=== PATIENT | male | born 1965 | race Caucasian/White ===

== ENCOUNTER 2018-12-10 11:33 | Emergency (ER) | payer OTHER ==
[~2018-12-10] VITALS: Ht 170.2 cm; Wt 89.4 kg
[~2018-12-10 11:33] MED LIST: HYDR-4011 PO; NAPR-985 PO
[2018-12-10 11:36] VITALS: BP 135/68; PULSE 79; RESP 18; Ht 170.2 cm; Wt 89.4 kg
[2018-12-10] MEDS ORDERED: IBUPROFEN 800 MG TAB PO ONE (12:00)
--- NOTE | 2018-12-10 12:33 | ERD ---
ER Documentation Chief Complaint Chief Complaint right foot swollen, painful & bruised s/p injury @ work yesterday HPI 53-year-old male presents to ED with the painful, swollen and bruised right foot. He states that yesterday he was at work and had a injury with a hydraulic machine in which he hit his foot. He denies any previous injury to the right foot. He reports the pain is mostly located at the bottom of his foot on the plantar aspect. He states the pain is worse when he is walking and rates it a 7 out of 10 pain that is localized to the bottom and lateral aspect of his foot. He has taken Advil with mild to moderate relief of his pain. He is still able to walk but it is painful. Past medical history of hypertension and prediabetes. ROS All systems reviewed and are negative except as per history of present illness. Medications Home Meds Active Scripts Hydrocodone/Acetaminophen (Wells 5-325 Tablet) 1 Each Tablet, 1 TAB PO Q6H PRN for PAIN, #7 TAB Prov:NOEMI GENAO PA-C 12/10/18 Naproxen* (Naprosyn*) 500 Mg Tablet, 500 MG PO BID PRN for PAIN AND/OR INFLAMMATION, #30 TAB Prov:NOEMI GENAO PA-C 12/10/18 Allergies Allergies: Coded Allergies: No Known Allergy (Unverified , 12/10/18) PMhx/Soc Medical and Surgical Hx: pt denies Surgical Hx Hx Cardiac Disorders: Yes (HYPERTENSION; DIABETES MELLITUS) Hx Alcohol Use: No Hx Substance Use: No Hx Tobacco Use: No Smoking Status: Never smoker FmHx Family History: No diabetes Physical Exam Vitals Vital Signs Date Temp Pulse Resp B/P (MAP) Pulse Ox O2 O2 Flow FiO2 Time Delivery Rate 12/10/18 98.3 79 18 135/68 97 11:36 (90) Physical Exam Const: No acute distress Head: Atraumatic Neck: Full range of motion. Resp: Clear to auscultation bilaterally Cardio: Regular rate and rhythm, Abd: Soft, non tender, non distended. Back: No midline or flank tenderness Ext: Right foot: Significantly bruised all around the ankle and top of the foot. Good 2+ pulses, fair range of motion, fair strength secondary to pain. Moderate tenderness at the bottom of the foot around the fifth metatarsal Neur: Awake and alert Psych: Normal Mood and Affect Results 24 hrs Current Medications Medications Dose Sig/Amaury Start Time Status Last (Trade) Ordered Route PRN Stop Time Admin Dose Reason Admin Ibuprofen 800 mg ONCE ONCE 12/10/18 DC 12/10/18 (Motrin) PO 12:00 12/10/18 12:18 12:01 Procedures/MDM ED COURSE: The patient was stable throughout ED course. I kept the patient informed of laboratory and diagnostic imaging results throughout the ED course. DIAGNOSTIC IMAGING: Read by radiologist. PROCEDURE: XR Ankle. CLINICAL INDICATION: Pain. TECHNIQUE: AP oblique and lateral views of the right ankle were performed. COMPARISON: None. FINDINGS: The mortise joint appears intact without evidence of fracture or or dislocation. There is diffuse soft tissue swelling. Small calcific density is seen near the tip of the fifth metatarsal. Cannot exclude small chip fracture. There are no other fractures identified.. IMPRESSION: 1. Questionable small chip fracture at the tip of the fifth metatarsal. 2. Mortise joint appears intact. 3. Diffuse soft tissue swelling.. RPTAT: QQ .Andry Edward MD, MD Date Time Electronically viewed and signed by .Andry Edward MD, on 12/10/2018 12:20 PROCEDURE: XR Foot. CLINICAL INDICATION: Right foot pain. TECHNIQUE: AP, lateral, and oblique views of the right foot are available for review. COMPARISON: None available FINDINGS: There is a small calcific density seen adjacent to the proximal tip of the fifth metatarsal which could represent a small chip or avulsion fracture. The remainder of the bones of the foot appear intact. No other fractures or dislocations are identified. Soft tissues appear within normal limits. . IMPRESSION: Questionable tiny chip fracture at the proximal tip of the fifth metatarsal. RPTAT: GG .Andry Edward MD, Date Time Electronically viewed and signed by .Andry Edward MD, MD on 12/10/2018 12:21 PROCEDURES: SPLINT APPLICATION: The patient was verbally consented at bedside prior to splint application. Patient was explained the risks, benefits and alternatives to this procedure. The patient was neurovascularly intact prior to and status post application of the splint. The patient tolerated the procedure well with no complications. Splint type: Boot Extremity: Right lower extremity Indication: Possible chip fracture of the fifth metatarsal MEDICATIONS GIVEN: Motrin Patient tolerated medication well with no adverse reactions. Patient reported improvement in pain. MEDICAL DECISION MAKING: Patient is a 53-year-old female status post work injury yesterday to the right foot. Patient's extremity symptoms have stabilized while they have been evaluated in the department and are appropriate for outpatient follow up. No evidence of fractures, dislocations, compartment syndrome, neurologic injury, vascular injury, open joint, open fracture, tendon laceration, septic arthritis, osteomyelitis, DVT, foreign body, or other emergent conditions. Vital signs were reviewed. Patient is afebrile. Patient was not hypoxic. Patient was hemodynamically stable. Patient was told to follow up with primary care for further care and management. PRESCRIPTION: Wells, naproxen DISCHARGE: At this time, patient is stable for discharge and outpatient management. I have instructed the patient to follow-up with their primary care physician in 1-2 days. I have discussed with the patient the possibility of needing to see a specialist for further workup and imaging studies if symptoms persist. I have instructed the patient to promptly return to the ER for any new or worsening symptoms including increased pain, fever, nausea, vomiting, weakness or LOC. The patient expressed understanding of and agreement with this plan. All questions were answered. Home care instructions were provided. Disclaimer: Inadvertent spelling and grammatical errors are likely due to EHR/dictation software use and do not reflect on the overall quality of patient care. Also, please note that the electronic time recorded on this note does not necessarily reflect the actual time of the patient encounter. Departure Diagnosis: Primary Impression: Foot fracture Encounter type: initial encounter Fracture type: closed Laterality: right Qualified Codes: S92.901A - Unspecified fracture of right foot, initial encounter for closed fracture Additional Impression: Injury of foot Encounter type: initial encounter Laterality: right Qualified Codes: S99.921A - Unspecified injury of right foot, initial encounter Condition: Fair Patient Instructions: Fracture, Foot Referrals: [facility] YOU HAVE RECEIVED A MEDICAL SCREENING EXAM AND THE RESULTS INDICATE THAT YOU DO NOT HAVE A CONDITION THAT REQUIRES URGENT TREATMENT IN THE EMERGENCY DEPARTMENT. FURTHER EVALUATION AND TREATMENT OF YOUR CONDITION CAN WAIT UNTIL YOU ARE SEEN IN YOUR DOCTORS OFFICE WITHIN THE NEXT 1-2 DAYS. IT IS YOUR RESPONSIBILITY TO MAKE AN APPOINTMENT FOR FOLOW-UP CARE. IF YOU HAVE A PRIMARY DOCTOR --you should call your primary doctor and schedule an appointment IF YOU DO NOT HAVE A PRIMARY DOCTOR YOU CAN CALL OUR PHYSICIAN REFERRAL HOTLINE AT IF YOU CAN NOT AFFORD TO SEE A PHYSICIAN YOU CAN CHOSE FROM THE FOLLOWING [facility] [address] [facility] [address] [facility] [address] [facility] [facility] [address] [facility] [address] [facility]. [facility] [address] [facility]. [facility] YOU HAVE RECEIVED A MEDICAL SCREENING EXAM AND THE RESULTS INDICATE THAT YOU DO NOT HAVE A CONDITION THAT REQUIRES URGENT TREATMENT IN THE EMERGENCY DEPARTMENT. FURTHER EVALUATION AND TREATMENT OF YOUR CONDITION CAN WAIT UNTIL YOU ARE SEEN IN YOUR DOCTORS OFFICE WITHIN THE NEXT 1-2 DAYS. IT IS YOUR RESPONSIBILITY TO MAKE AN APPOINTMENT FOR FOLOW-UP CARE. IF YOU HAVE A PRIMARY DOCTOR --you should call your primary doctor and schedule and appointment IF YOU DO NOT HAVE A PRIMARY DOCTOR YOU CAN CALL OUR PHYSICIAN REFERRAL HOTLINE AT . IF YOU CAN NOT AFFORD TO SEE A PHYSICIAN YOU CAN CHOSE FROM THE FOLLOWING [facility]: [facility] [address] [place] [address] [facility] [address] [place] [address] [facility] [address] [place] [address] [facility] 7 a.m.- 11 p.m. Every Day of the Week NO APPOINTMENT OR AUTHORIZATION NEEDED SO [facility] Hours: Mon-Fri 9:00 AM - 5:00 PM Additional Instructions: Follow-up with your primary care provider or Ortho in the next 1 to 2 days for re-evaluation of possible chip fracture in your right foot. Call your primary care doctor TOMORROW for an appointment during the next 1-2 days.See the doctor sooner or return here if your condition worsens before your appointment time. NOEMI GENAO PA-C Dec 10, 2018 12:33
== END 2018-12-10 13:59 | disposition home or self-care (01) ==
LOC: FTE 11:33
DX: S92.901A Unspecified fracture of right foot, initial encounter for closed fracture (principal); S90.01XA Contusion of right ankle, initial encounter; I10 Essential (primary) hypertension; E11.9 Type 2 diabetes mellitus without complications; W22.8XXA Striking against or struck by other objects, initial encounter; Y92.9 Unspecified place or not applicable
CPT/HCPCS: 73630